=== PATIENT | male | born 1990 | race Caucasian/White ===

== ENCOUNTER 2023-02-04 14:43 | Outpatient (AMB) | payer SELFPAY ==
--- NOTE | 2023-02-04 14:44 | MHC.OFFWIV ---
Intake Vital Signs 02/04/23 14:46 Height 5 ft 9 in BP 140/76 H Blood Pressure Location Lt brachial Position Sitting Pulse 74 Pulse Source Pulse Oximeter Pulse Oximetry (%) 98 Oxygen Delivery Method Room Air Intake Visit Reasons: EST/swollen ankle/ injury Intake Note: Pt is here for swollen ankle, injury while playing hockey Patient Tobacco Use Status: Never used Tobacco Allergies No Known Allergies Allergy (Verified 02/04/23 14:46) HPI EST/swollen ankle/ injury HPI Details Patient is a 32-year-old male who comes to the walk-in clinic complaining of swelling, bruising and pain to his right ankle after twisting it during a hockey game. He did ice it a little, and he applied some KT tape which helped alleviate some of the pain. He still limps while ambulating however. No weakness, numbness or tingling reported. No prior injury reported, and no underlying musculoskeletal issues. PFSH Social History Patient Tobacco Use Status: Never used Tobacco Review of Systems Const All systems reviewed & are unremarkable except as noted in HPI and below Physical Exam Vital Signs: Last Vital Signs Pulse 74 02/04/23 14:46 BP 140/76 H 02/04/23 14:46 Pulse Ox 98 02/04/23 14:46 Oxygen Delivery Method Room Air 02/04/23 14:46 Extrem Right lower extremity: full ROM, normal capillary refill and ankle (No bony tenderness, good strength) Details: tenderness (Anterior talofibular ligament area), swelling, normal ROM and ecchymosis; no unusual warmth, no lacerations and no penetrating wound; no cyanosis Left lower extremity: foot Details: normal capillary refill, normal to inspection, toes with normal ROM, no edema, tendon exam Details: active flexion normal and motor-sensory exam (Normal); no tenderness and no unusual warmth Assessment & Plan Assessment & Plan (1) Ankle sprain: Code(s): S93.409A - Sprain of unspecified ligament of unspecified ankle, initial encounter Qualifiers: Encounter type: initial encounter Involved ligament of ankle: anterior talofibular ligament Laterality: right Qualified Code(s): S93.491A - Sprain of other ligament of right ankle, initial encounter Plan: Patient apparent mild sprain to the right ankle, no osseous trauma seen on plain film x-ray today. Advised he RICE until symptoms improve. He was put into an Will wrap and air cast, and he was able to ambulate with minimal pain. I wrote him for prescription ibuprofen, and advised that he take it with food as needed. He can follow up with Orthopedics if he cannot wean from the air cast after a few weeks as he would be a candidate for a walking boot at that point. Orders: Orders XR ankle RT min 3V 02/04/23 S93.409A - Sprain of unspecified ligament of unspecified ankle, initial encounter XR foot RT 2V 02/04/23 S99.911A - Unspecified injury of right ankle, initial encounter Medications: New ibuprofen 800 mg PO Q8H PRN 30 tabs 0RF pain Coding Level of Care Code Est Pt Level 4 (34510) Diagnoses Ankle sprain S93.491A Encounter type: initial encounter Involved ligament of ankle: anterior talofibular ligament Laterality: right
[2023-02-04 14:46] VITALS: BP 140/76; PULSE 74; O2SAT 98
== END 2023-02-04 15:18 | disposition home or self-care (01) ==
PROVIDERS: PCP Physician Assistant; Visit Provider Physician Assistant Medical
DX: S93.491A Sprain of other ligament of right ankle, initial encounter (principal)
CPT/HCPCS: 99051; 99214

== ENCOUNTER 2023-02-04 14:45 | Outpatient (REF) | payer SELFPAY ==
--- NOTE | ~2023-02-04 | XR_ITS ---
EXAMINATION: XR ANKLE, RIGHT CLINICAL INFORMATION: Pain and swelling. Trauma. COMPARISON: None available. TECHNIQUE: AP, lateral, and mortise views of the right ankle. FINDINGS: No fracture. Alignment is anatomic. No erosions. Joint spaces are maintained. Soft tissues are normal. XR/XR ankle RT min 3V IMPRESSION: Normal right ankle.
--- NOTE | ~2023-02-04 | XR_ITS ---
EXAMINATION: XR FOOT, RIGHT CLINICAL INFORMATION: Right ankle and foot injury. COMPARISON: Right ankle x-rays of 02/04/2023 TECHNIQUE: AP, lateral, and oblique views of the right foot. FINDINGS: No evidence of acute fracture or dislocation. No soft tissue air or radiopaque foreign body are noted. No soft tissue calcifications. No focal erosion. Bones and joints appear normal. XR/XR foot RT 2V IMPRESSION: No radiographic evidence of acute fracture or dislocation in the right foot.
== END 2023-02-04 14:46 | disposition home or self-care (01) ==
LOC: HO.HMGCX 14:45
PROVIDERS: PCP Physician Assistant; Visit Provider Physician Assistant Medical
DX: S99.911A Unspecified injury of right ankle, initial encounter (principal); S93.401A Sprain of unspecified ligament of right ankle, initial encounter
CPT/HCPCS: 73610; 73620

== ENCOUNTER 2024-11-11 11:29 | Outpatient (AMB) | payer BC, SELFPAY ==
--- NOTE | 2024-11-11 11:36 | MHC.PC.OV ---
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 Has not been seen by pcp in > 5 years Had some concern for high blood pressure. Has not checked at home. Sometimes feels like his heart is racing. Lasts for a few minutes. Neck starts hurting a bit. Initial HR here high but in 80s upon my auscultation ROS see HPI PHYSICAL EXAM: GENERAL: Alert and oriented x 3. NAD EYES: EOMI. Anicteric. HENT: Moist mucous membranes. No scleral icterus. No cervical lymphadenopathy. LUNGS: Clear to auscultation bilaterally. CARDIOVASCULAR: Regular rate and rhythm. No murmur. No JVD. ABDOMEN: Soft, non-tender +bs EXTREMITIES: No edema. Non-tender. SKIN: No rashes or lesions. Warm. NEUROLOGIC: No focal neurological deficits. CN II-XII grossly intact PSYCHIATRIC: Cooperative. Appropriate mood and affect [facility] Social History Housing: House Patient Tobacco Use Status: Never used Tobacco e-Cigarette/Vaping Use: Never Used Second Hand Smoke Exposure: No service: No Current occupational status: employed Current occupation: [employer] Current occupational exposures/hazards: No Cognitive needs: No Hearing needs: No Vision needs: No Questionnaire PHQ-9 Over the last 2 weeks, how often have you been bothered by any of the following problems? 1. Little interest or pleasure in doing things: several days 2. Feeling down, depressed, or hopeless: several days 3. Trouble falling or staying asleep, or sleeping too much: not at all 4. Feeling tired or having little energy: several days 5. Poor appetite or overeating: not at all 6. Feeling bad about yourself - or that you are a failure or have let yourself or your family down: several days 7. Trouble concentrating on things, such as reading the newspaper or watching television: not at all 8. Moving or speaking so slowly that other people could have noticed. Or the opposite - being so fidgety or restless that you have been moving around a lot more than usual: not at all 9. Thoughts that you would be better off or of hurting yourself in some way: not at all Total score: 4 Depression Screening Interpretation: Negative Depression Screening Done: Yes 43277 - PHQ-9 Billing: Yes Source: Developed by Drs. Richard Taylor, Rose Rogers, Massimo Douglass and colleagues, with an educational jess from [employer]. Thrive Questionnaire Date Thrive assessed: 11/11/24 I am a: Patient What is your living situation today?: I have a steady place to live Within the past 12 months, did the food you bought not last and you didn't have the money to get more?: Never true Within the past 12 months, did you worry whether your food would run out before you got money to buy more?: Never true Do you have trouble paying for medicines?: No Do you have trouble getting transportation to medical appointments?: No Do you have trouble paying your heating and electricity bill?: No Do you have trouble taking care of your child, family member or friend?: No Do you have trouble with day-to-day activities such as bathing, preparing meals, shopping, managing finances, etc.?: No Are you currently unemployed and looking for a job?: No Are you interested in more education?: No Please select the resources that you would like help with: None Currently or been in a relationship where the following occur: Controlled Emotionally THRIVE Score: 1 AUDIT C Alcohol Use Questionnaire (AUDIT-C) 1. How often do you have a drink containing alcohol?: 2-3 times a week 2. How many drinks containing alcohol do you have on a typical day when you are drinking?: 1 or 2 3. How often do you have six or more drinks on one occasion?: Less than monthly Total Score: 4 FELICIA-7 AMB Questionnaire FELICIA-7 Date FELICIA - 7 assessed: 11/11/24 Feeling nervous, anxious, or on edge: 1 = Several days Not being able to stop or control worryin = More than half the days Worrying too much about different things: 2 = More than half the days Trouble relaxin = Nearly every day Being so restless that it is hard to sit still: 1 = Several days Becoming easily annoyed or irritable: 2 = More than half the days Feeling afraid as if something awful might happen: 0 = Not at all Total FELICIA-7 score (0-4 normal; 5-9 mild; 10-14 moderate; 15-21 severe): 11 Source: Developed by Drs. Richard Taylor, Rose Rogers, Massimo Douglass and colleagues, with an educational jess from [employer]. FELICIA-7 Assessment Billing FELICIA-7 Assessment Tool: FELICIA-7 Assessment 68871 Physical exam (Primary Care) Vital Signs: Last Vital Signs Temp 98.2 F 11/11/24 11:41 Pulse 102 H 11/11/24 11:41 Resp 14 11/11/24 11:41 BP 134/78 11/11/24 11:41 Pulse Ox 97 11/11/24 11:41 Oxygen Delivery Method Room Air 11/11/24 11:41 BMI result Body Mass Index 30.5 Tobacco/Smoking Status: Tobacco use Status Tobacco use date assessed 11/11/24 11/11/24 11:45 Patient Tobacco Use Status Never used Tobacco 11/11/24 11:45 e-Cigarette/Vaping Use Never Used 11/11/24 11:45 PHQ-9: PHQ-9 Score PHQ-9: Total score 4 11/11/24 11:46 Depression Screening Interpretation: Negative Thrive Assessment: Date of Thrive Assessment Date Thrive assessed 11/11/24 11/11/24 11:45 Currently or been in a relationship where the following occur: Controlled Emotionally Coding Level of Care Code New Pt Level 3 (18687) Complex EM visit Add On G2211 Diagnoses Anxiety F41.9 Stress F43.9 Tachycardia R00.0 Additional Codes FELICIA-7 Assessment Billing - FELICIA-7 Assessment Tool: FELICIA-7 Assessment 83188 ([id number]) PHQ-9 - 46494 - PHQ-9 Billing: Yes ([id number]) Assessment & Plan Assessment & Plan (1) Anxiety: Code(s): F41.9 - Anxiety disorder, unspecified Category: Medical (2) Stress: Code(s): F43.9 - Reaction to severe stress, unspecified Category: Medical (3) Tachycardia: Code(s): R00.0 - Tachycardia, unspecified Category: Medical Plan 34 year old to establish care past medical, surgical, social reviewed Anxiety, tachycardia-work is difficult right now. Declines medication/referrals Labs ordered Orders: Orders Comprehensive Met. Panel 11/12/24 F41.9 - Anxiety disorder, unspecified, F43.9 - Reaction to severe stress, unspecified, R00.0 - Tachycardia, unspecified, Z13.0 - Encounter for screening for diseases of the blood and blood-forming organs and certain disorders involving the immune mechanism, Z13.220 - Encounter for screening for lipoid disorders, Z13.228 - Encounter for screening for other metabolic disorders TSH reflex Free T4 11/12/24 F41.9 - Anxiety disorder, unspecified, F43.9 - Reaction to severe stress, unspecified, R00.0 - Tachycardia, unspecified, Z13.0 - Encounter for screening for diseases of the blood and blood-forming organs and certain disorders involving the immune mechanism, Z13.220 - Encounter for screening for lipoid disorders, Z13.228 - Encounter for screening for other metabolic disorders Lyme IgG/IgM w/reflex to WB 11/12/24 R00.0 - Tachycardia, unspecified Complete Blood Count Auto Diff 11/12/24 F41.9 - Anxiety disorder, unspecified, F43.9 - Reaction to severe stress, unspecified, R00.0 - Tachycardia, unspecified, Z13.0 - Encounter for screening for diseases of the blood and blood-forming organs and certain disorders involving the immune mechanism, Z13.220 - Encounter for screening for lipoid disorders, Z13.228 - Encounter for screening for other metabolic disorders Lipid Panel 11/12/24 F41.9 - Anxiety disorder, unspecified, F43.9 - Reaction to severe stress, unspecified, R00.0 - Tachycardia, unspecified, Z13.0 - Encounter for screening for diseases of the blood and blood-forming organs and certain disorders involving the immune mechanism, Z13.220 - Encounter for screening for lipoid disorders, Z13.228 - Encounter for screening for other metabolic disorders Hemoglobin A1c 11/12/24 F41.9 - Anxiety disorder, unspecified, F43.9 - Reaction to severe stress, unspecified, R00.0 - Tachycardia, unspecified, Z13.0 - Encounter for screening for diseases of the blood and blood-forming organs and certain disorders involving the immune mechanism, Z13.220 - Encounter for screening for lipoid disorders, Z13.228 - Encounter for screening for other metabolic disorders
[2024-11-11 11:41] VITALS: BP 134/78; PULSE 102; RESP 14; TEMP 36.8; O2SAT 97; BMI 30.5
== END 2024-11-11 12:05 | disposition home or self-care (01) ==
LOC: HO.HMCFM 11:30
PROVIDERS: PCP Internal Medicine; Visit Provider Internal Medicine
DX: F41.9 Anxiety disorder, unspecified (principal); F43.9 Reaction to severe stress, unspecified; R00.0 Tachycardia, unspecified

== ENCOUNTER → 2024-11-11 11:29 | Outpatient (BNVA) | payer BC, SELFPAY | PROVIDERS: PCP Internal Medicine; Visit Provider Internal Medicine | DX: F41.9 Anxiety disorder, unspecified (principal); F43.9 Reaction to severe stress, unspecified; R00.0 Tachycardia, unspecified | CPT/HCPCS: 96127 ==

== ENCOUNTER 2024-11-12 08:01 | Outpatient (REF) | payer BC, SELFPAY ==
[2024-11-12 11:26] LABS: MANUAL DIFF FLAG NO
[2024-11-12 12:02] LABS: Basophils Percent Auto 0.6 % (0-2); Eosinophils Absolute Auto 0.2 X10*3/uL (0.0-0.4); Eosinophils Percent Auto 2.8 % (0-4); Hematocrit 44.1 % (42.0-52.0); Hemoglobin 14.9 g/dl (14.0-18.0); Imm Gran Abs Auto 0.02 X10*3/uL (0.00-0.03); Imm Gran Pct Auto 0.3 % (0.0-0.4); Lymphocytes Absolute Auto 2.1 X10*3/uL (1.2-4.9); Lymphocytes Percent Auto 30.8 % (20-40); Mean Corpuscular HGB Conc 33.8 g/dl (31.0-36.0); Mean Corpuscular Volume 88.7 fL (80.0-98.0); Mean Platelet Volume 11.9 fL (9.4-12.4); Monocytes Percent Auto 14.3 % (2-11); Neutrophils Absolute Auto 3.5 x10*3/uL (2.0-8.3); Neutrophils Percent Auto 51.2 % (45-73); Platelet Count 201 X10*3/uL (160-400); Red Blood Count 4.97 X10*6/uL (4.60-5.80); Red Cell Distribution Width 12.5 % (11.0-16.0); White Blood Count 6.9 X10*3/uL (4.8-10.8)
[2024-11-12 12:15] LABS: Estimated Average Glucose 105 mg/dL; Hemoglobin A1C 137.7956 umol/L; Hemoglobin A1c % 5.3 % (<6.0); Total Hemoglobin (HGBA1C) 3958.9651 umol/L
[2024-11-12 12:33] LABS: Alanine Aminotransferase 37 U/L (0-40); Albumin Level 4.1 g/dL (3.5-5.0); Alkaline Phosphatase 64 U/L (39-117); Anion Gap 9 (12-20); Aspartate Amino Transferase 39 U/L (5-37); Bilirubin Total 0.5 mg/dL (0.0-1.0); Blood Urea Nitrogen 15 mg/dL (9-16); Carbon Dioxide 25 mmol/L (22-29); Chloride 110 mmol/L (96-108); Cholesterol 172 mg/dL (<200); Estimated Glomerular Filt Rate > 60; Glucose Random 101 mg/dL (60-115); HDL Cholesterol 43 mg/dL (>40); LDL Cholesterol Calculated 114 mg/dL (<100); Potassium 4.1 mmol/L (3.3-5.1); Sodium 140 mmol/L (135-145); Total Protein 7.1 g/dL (6.5-8.0); Triglycerides 75 mg/dL (<150)
[2024-11-12 12:34] LABS: TSH reflex Free T4 1.53 uIU/mL (0.32-4.0)
[2024-11-13 21:28] LABS: Lyme Abs Screen <0.90 index
== END 2024-11-12 08:02 | disposition home or self-care (01) ==
LOC: HO.WFDLDS 08:01
PROVIDERS: Visit Provider Internal Medicine
DX: F43.9 Reaction to severe stress, unspecified (principal); F41.9 Anxiety disorder, unspecified; R00.0 Tachycardia, unspecified; Z13.0 Encounter for screening for diseases of the blood and blood-forming organs and certain disorders involving the immune mechanism; Z13.228 Encounter for screening for other metabolic disorders; Z13.220 Encounter for screening for lipoid disorders; Z13.1 Encounter for screening for diabetes mellitus
CPT/HCPCS: 36415; 80053; 80061; 83036; 84443; 85025; 86617; 86618